=== PATIENT | female | born 1985 | race Caucasian/White ===

== ENCOUNTER 2022-08-25 10:39 | Day surgery (SDC) | payer OTHER ==
[~2022-08-25] VITALS: Ht 160 cm; Wt 69.5 kg
--- NOTE | 2022-08-25 13:58 | NUR ---
08/25/22 1353 Jana De Leon PATIENT SITTING IN RECLINER EATING CRACKERS AND DRINKING. TOLERATING PO WITH NO NAUSEA. MEDICATED WITH 25MCG FENTANYL FOR 6/10 ABDOMINAL PAIN. TOTAL = 37.5MCG
== END 2022-08-25 14:34 | disposition home or self-care (01) ==
LOC: ORSCSDS 10:39
PROVIDERS: Obstetrics & Gynecology
PROC: 0UT74ZZ Resection of Bilateral Fallopian Tubes, Percutaneous Endoscopic Approach (ICD-10-PCS; principal; 2022-08-25 12:00)
DX: Z30.2 Encounter for sterilization (principal); Z87.891 Personal history of nicotine dependence
CPT/HCPCS: 86850; 86900; 86901; 88302; A9270; J0171; J1100; J1885; J2250; J2405; J2704; J2795; J3010; J7120

== ENCOUNTER → 2023-09-19 | Outpatient (CLI) | payer OTHER ==
[2023-09-30 08:49] LABS: HPV GENOTYPE 16 Not Detected; HPV GENOTYPE 18 Not Detected; HPV HIGH RISK Not Detected; HPV SOURCE Vaginal
== END ==
LOC: LAB SHORT 16:13 → LAB 16:13
PROVIDERS: Obstetrics & Gynecology
DX: Z01.419 Encounter for gynecological examination (general) (routine) without abnormal findings (principal)
CPT/HCPCS: 87624; G0123

== ENCOUNTER 2023-12-04 09:00 | Day surgery (SDC) | payer OTHER ==
[~2023-12-04] VITALS: Ht 160 cm; Wt 66.9 kg
[2023-12-04] VITALS (17 sets, daily range): BP systolic 97–126; BP diastolic 36–77
[~2023-12-04 09:00] MED LIST: ACCUTANE30 MG PO; Budeprion Xl300 MG PO; Prozac40 MG PO
[2023-12-04] MEDS ORDERED: Lactated Ringer's 1,000 ML IV SCH ×2 (09:10→14:00)
[2023-12-04] MEDS ORDERED: Clindamycin 900mg in D5W 50ML 50 ML IV SCH (09:10)
[2023-12-04] MEDS ORDERED: GENTAMICIN SULFATE IV SCH (09:30)
[2023-12-04] MEDS ORDERED: NS IV SCH (09:30)
--- NOTE | 2023-12-04 10:00 | NUR ---
Ambulatory in Day SurgeryPre-Op teaching done. Pt verbalizes understanding. History, Chart, Medications and Allergies reviewed before start of procedure.Patient confirms NPO status and agrees with scheduled surgery. Patient States Post-Procedure ride home has been arranged.
[2023-12-04] MEDS ORDERED: FentaNYL Citrate 50 MCG/ML 5 ML Injection ONE (11:05)
[2023-12-04] MEDS ORDERED: Ondansetron HCl 2 MG / ML 2ML Vial ONE (11:05)
[2023-12-04] MEDS ORDERED: Ketorolac Tromethamine 30mg Vial ONE (11:05)
[2023-12-04] MEDS ORDERED: propofoL 20 ML IV ONE (11:05)
[2023-12-04] MEDS ORDERED: Dexamethasone Sod Phos 10 MG/ML 1ML VIAL ONE (11:06)
[2023-12-04] MEDS ORDERED: Rocuronium Bromide 10 MG/ML 5ML Injection IV ONE ×2 (11:06)
[2023-12-04] MEDS ORDERED: Bupivacaine 0.5% HCl 5 MG/ML 30MLVIAL ONE (11:08)
[2023-12-04] MEDS ORDERED: Sugammadex Sodium 200 MG/2ML SDV (100 MG/ML) ONE (11:54)
[2023-12-04] MEDS ORDERED: FentaNYL Citrate 50 MCG/ML 2 ML Injection ONE (13:37)
[2023-12-04] MEDS ORDERED: HYDROmorphone HCl/Pf 1MG SYR ONE (13:49)
[2023-12-04] MEDS ORDERED: Simethicone 80 MG Chew PO PRN (13:55)
[2023-12-04] MEDS ORDERED: Naloxone HCl 0.4MG / ML 1ML Vial IV PRN (13:55)
[2023-12-04] MEDS ORDERED: Ondansetron HCl 2 MG / ML 2ML Vial IV PRN (13:55)
[2023-12-04] MEDS ORDERED: OxyCODONE HCL 5 MG TAB PO PRN ×2 (13:55)
[2023-12-04] MEDS ORDERED: HYDROmorphone HCl/Pf 1MG SYR IV PRN (14:00)
[2023-12-04] MEDS ORDERED: Metoclopramide HCl 5MG / ML 2ML Vial IV PRN (14:00)
[2023-12-04] MEDS ORDERED: DiphenhydrAMINE HCL 25 MG Cap PO PRN (14:00)
--- NOTE | 2023-12-04 14:34 | NUR ---
PT ARRIVED TO UNIT AT APROX 1430 FROM PACU. LAP SITES X'S 3 W/WOUND GLUE C/D/I. PT REPORTS PAIN 5/10 AFTER TX TO BED W/SLIDER SHEET, REPORTS ITS CRAMPING PELVIC PAIN, PT GIVEN HEATING PAD. PT TOLERTING SMALL AMTS PO
[2023-12-04] MEDS ORDERED: Ibuprofen 400 MG Tab PO SCH (16:00)
[2023-12-04] MEDS ORDERED: Acetaminophen 500 MG Tab PO SCH (18:00)
[2023-12-04] MEDS ORDERED: Ketorolac Tromethamine 30mg Vial IV SCH (18:00)
--- NOTE | 2023-12-04 19:31 | NUR ---
SHIFT SUMMARY PT POD 0 BOUBACAR HYSTER. LAP SITES REMAIN C/D/I COMPARED TO PREV ASSESSMENT. GLADYS PAD C/D. PT HAS VOIDING X'S 2 SMALL AMTS ORAGE EACH TIME. PT STATES PAIN IS IMPROVING FOLLOWING SECOND DOSE OF PO PAIN MEDICATIONS. TOLERATING SMALL AMT PO WITH NO N/V. AMBULATIN IN ROOM TO BATHROOM.
--- NOTE | 2023-12-04 20:39 | NUR ---
DISCHARGE NOTE PT DISCHARGED HOME AT APPROX 2030. [employer]ER PROVIDED PT W/ VERBAL AND WRITTEN INSTRUCTIONS, PT REPORTED UNDERSTANDING. PT A&OX4, VSS, AMB IND, TOLERATING PO, VOIDING, AND PAIN MANAGED PER EMAR. BLADDER SCAN OF 19MLS, NO RETENTION DIFFICULTY NOTED. BELONGINGS WERE RETURNED AND PT LEFT W/ SPOUSE ASSIST.
[2023-12-05] MEDS ORDERED: Enoxaparin 40 MG/0.4 ML SYR SC SCH (09:00)
[2023-12-05] MEDS ORDERED: Polyethylene Glycol 3350 17 gm PO SCH (09:00)
== END 2023-12-04 20:35 | disposition home or self-care (01) ==
LOC: ORSCMMR 09:00 → ORD 10:45 → ORSCMMR 10:45 → SURS 14:13 → ORSCMMR 20:35
PROVIDERS: Obstetrics & Gynecology
PROC: 0UT9FZZ Resection of Uterus, Via Natural or Artificial Opening With Percutaneous Endoscopic Assistance (ICD-10-PCS; principal; 2023-12-04 10:45)
DX: D25.2 Subserosal leiomyoma of uterus (principal); N93.8 Other specified abnormal uterine and vaginal bleeding; N94.6 Dysmenorrhea, unspecified; N80.03 Adenomyosis of the uterus; Z87.891 Personal history of nicotine dependence; F43.10 Post-traumatic stress disorder, unspecified; F41.8 Other specified anxiety disorders; F32.A Depression, unspecified; Z79.899 Other long term (current) drug therapy
CPT/HCPCS: 86850; 86900; 86901; A9270; J1100; J1170; J1580; J1885; J2405; J2704; J3010; J7120

== ENCOUNTER → 2024-06-16 | Outpatient (CLI) | payer OTHER ==
[2024-06-16 12:11] LABS: BASOPHILS ABSOLUTE AUTO 0.06 K/mm3 (0.00-0.23); BASOPHILS PERCENT AUTO 1 % (0-2); EOSINOPHILS ABSOLUTE AUTO 0.08 K/mm3 (0.00-0.68); EOSINOPHILS PERCENT AUTO 1 % (0-6); Hematocrit 41.7 % (33.0-51.0); Hemoglobin 13.7 g/dL (11.5-16.0); IMMATURE GRAN ABSOLUTE AUTO 0.02 K/mm3 (0.00-0.10); IMMATURE GRAN PERCENT AUTO 0 % (0-1); LYMPHOCYTES ABSOLUTE AUTO 3.52 K/mm3 (0.84-5.20); LYMPHOCYTES PERCENT AUTO 41 % (21-46); MONOCYTES ABSOLUTE AUTO 0.55 K/mm3 (0.16-1.47); MONOCYTES PERCENT AUTO 7 % (4-13); Mean Corpuscular HGB 29.9 pg (26.0-34.0); Mean Corpuscular HGB Conc 32.9 g/dL (31.5-36.5); Mean Corpuscular Volume 91 fL (80-100); Mean Platelet Volume 9.9 fL (9.1-12.4); NEUTROPHILS ABSOLUTE AUTO 4.28 K/mm3 (1.96-9.15); NEUTROPHILS PERCENT AUTO 50 % (41-73); Platelet Count 320 K/mm3 (150-400); Red Blood Cell Count 4.58 M/mm3 (3.80-5.20); White Blood Cell Count 8.51 K/mm3 (4.00-11.30)
[2024-06-16 12:43] LABS: Alanine Aminotransfer (ALT/SGP 20 U/L (12-78); Albumin, Blood 3.9 g/dL (3.4-5.0); Albumin/Globulin Ratio 1.1 (0.8-1.8); Alk Phos 60 U/L (50-136); Anion Gap 8 mmol/L (3-11); Aspartate Aminotrans (AST/SGOT 18 U/L (12-37); Bilirubin, Direct <0.1 mg/dL (0.0-0.3); Bilirubin, Indirect Unable to Calculate mg/dL (0.1-0.7); Bilirubin, Total 0.3 mg/dL (0.1-1.0); Blood Urea Nitrogen 9 mg/dL (8-24); Bun/Creatinine Ratio 13.2 (12.0-20.0); CO2, Blood 26 mmol/L (21-32); Calcium, Blood 9.2 mg/dL (8.5-10.1); Chloride, Blood 109 mmol/L (98-108); Creatinine, Blood 0.68 mg/dL (0.40-1.00); Globulin, Blood 3.5 g/dL (2.2-4.0); Glomerular Filtration Rate 114 (60-); Glucose, Blood 93 mg/dL (70-99); Potassium, Blood 4.1 mmol/L (3.5-5.5); Sodium, Blood 139 mmol/L (136-145); Total Protein, Blood 7.4 g/dL (6.4-8.2)
== END ==
LOC: LAB 12:02 → LAB SHORT 12:02
PROVIDERS: Nurse Practitioner Acute Care
DX: R30.0 Dysuria (principal); R10.9 Unspecified abdominal pain
CPT/HCPCS: 80053; 82248; 85025; 87086